=== PATIENT | male | born 1955 | race Caucasian/White ===

== ENCOUNTER → 2019-07-17 13:35 | Outpatient (CLI) | payer OTHER, SELFPAY ==
[2019-06-26 11:22] VITALS: BMI 31.1
--- NOTE | 2019-07-17 13:38 | ECHOD_ITS ---
Reason For Study: CP Procedure This was a 2D Doppler, Color Flow transthoracic echocardiogram. Exam performed in department. Left Ventricle Normal size and thickness. The estimated ejection fraction is 65 %. Normal diastology for age. No regional wall motion abnormalities noted. Right Ventricle Mildly dilated right ventricle. Normal systolic function. Atria Normal left atrium. Normal right atrium. Normal atrial septum. Mitral Valve Mild diffuse mitral valve thickening. Mild mitral annular calcification extending into the posterior leaflet. Tricuspid Valve Normal tricuspid valve. Trivial tricuspid valve insufficiency. Right ventricular systolic pressure estimated to be 23 mmHg. Aortic Valve Trisinus/trileaflet aortic valve. Mild diffuse aortic valve thickening. Trivial aortic valve insufficiency. Pulmonic Valve Normal pulmonic valve. Trivial pulmonic valve insufficiency. Great Vessels Normal aortic root. Normal arch. Normal inferior vena cava. Inferior vena cava collapse with sniff. Pericardium/Pleural No pericardial effusion. MMode/2D Measurements & Calculations LVIDd: 5.0 cm IVSd: 1.2 cm Ao root diam: 3.7 cm LVIDs: 3.1 cm LVPWd: 1.1 cm LA dimension: 4.1 cm RVDd: 3.7 cm FS: 39.2 % LAV(MOD-bp): 70.3 ml LA A4 area: 21.6 cm2 RA A4 area: 16.5 cm2 LAV(MOD-bp) Indexed: 35.1 ml/m2 LAV(MOD-sp2): 76.6 ml LAV(MOD-sp4): 64.0 ml Time Measurements MV dec time: 0.25 sec Doppler Measurements & Calculations MV E max elmo: 84.4 cm/sec Lat Peak E' Elmo: 9.4 cm/sec Med Peak E' Elmo: 5.6 cm/sec MV A max elmo: 70.1 cm/sec E/E' lat: 9.0 E/E' med: 15.0 MV E/A: 1.2 MV V2 max: 86.1 cm/sec MV P1/2t max lemo: 86.1 cm/sec Ao V2 max: 76.4 cm/sec MV max P.0 mmHg MV P1/2t: 114.6 msec Ao max P.3 mmHg MV V2 mean: 47.4 cm/sec MV dec slope: 219.9 cm/sec2 Ao V2 mean: 47.7 cm/sec MV mean P.1 mmHg MVA(P1/2t): 1.9 cm2 Ao mean P.1 mmHg MV V2 VTI: 35.0 cm Ao V2 VTI: 16.7 cm AI max elmo: 370.7 cm/sec LV V1 max: 67.6 cm/sec PA V2 max: 76.1 cm/sec AI max P.0 mmHg LV V1 max P.8 mmHg LV V1 mean P.72 mmHg AI dec slope: 152.9 cm/sec2 LV V1 mean: 38.7 cm/sec AI P1/2t: 710.1 msec LV V1 VTI: 15.7 cm PI end-d elmo: 88.6 cm/sec TR max elmo: 213.9 cm/sec TR max P.3 mmHg Interpretation Summary The estimated ejection fraction is 65 %. Normal diastology for age. Mildly dilated right ventricle. Trivial tricuspid valve insufficiency. Right ventricular systolic pressure estimated to be 23 mmHg. Trivial aortic valve insufficiency. There is no comparison study available. Ordering Physician: Robbi Núñez Referring Physician: Karl Garsia Performed By: Sanjay Rivera RCS
== END ==
LOC: CVS 13:36
PROVIDERS: Family Provider Internal Medicine; PCP Internal Medicine; Referring Provider Internal Medicine Cardiovascular Disease; Visit Provider Internal Medicine Cardiovascular Disease
DX: R07.9 Chest pain, unspecified (principal); I25.10 Atherosclerotic heart disease of native coronary artery without angina pectoris; E78.2 Mixed hyperlipidemia; I10 Essential (primary) hypertension; I48.92 Unspecified atrial flutter; Z95.5 Presence of coronary angioplasty implant and graft
CPT/HCPCS: 93306

== ENCOUNTER → 2019-07-20 12:23 | Outpatient (CLI) | payer OTHER, SELFPAY ==
[2019-06-26 11:22] VITALS: BMI 31.1
--- NOTE | 2019-07-20 12:26 | STEWCON_ITS ---
Reason For Study: CHEST PAIN Stress Results Maximum Predicted HR: 157 bpm Target HR: 133 bpm % Maximum Predicted HR: 85 % DurationHeart Rate Stage (mm:ss) (bpm) BP Comment BASELINE 59 110/742 CC DEFINITY STAGE 1 3:00 93 120/72 STAGE 2 3:00 107 122/58 STAGE 3 3:00 122 142/60 STAGE 4 0:46 133 / RECOVERY 84 120/802 CC DEFINITY Stress Duration: 9:46 mm:ss Maximum Stress HR: 133 bpm Baseline Echocardiogram Findings The estimated ejection fraction is 65 %. Stress Echo Wall motion Data Resting WM Intermediate WM Stress WM Resting Wall Motion Wall Motion Stress No regional wall motion No regional wall motion abnormalities noted. abnormalities noted. EKG Data The baseline ECG displays normal sinus rhythm. The patient exercised according to the regular Rakesh protocol for a total duration of 9:46. The maximum heart rate attained was 144 beats per minute. This was 91% of maximum predicted heart rate. The patient exercised into stage 4 of the Rakesh protocol. During stress, there were no ST or T wave changes noted to suggest ischemia. No clinical angina was noted. Interpretation Summary The estimated ejection fraction is 65 %. Normal, adequate, treadmill echocardiogram. Negative for ischemia by EKG and echocardiographic criteria. No anginal symptoms noted. Rare PVC noted. Appropriate blood pressure response to exercise. Average exercise capacity for age. Test terminated due to the attainment target heart rate and dyspnea. Final LVEF is 75%. Decreased sensitivity due to poor echo windows requiring Definity agent. Patient tolerated procedure well. No complications. The study was technically limited. Contrast injection was performed. Ordering Physician: Robbi Núñez Referring Physician: Robbi Núñez Performed By: Nadiya Anton, LENNY, RVT
== END ==
LOC: CVS 12:24
PROVIDERS: Family Provider Internal Medicine; PCP Internal Medicine; Referring Provider Internal Medicine Cardiovascular Disease; Visit Provider Internal Medicine Cardiovascular Disease
DX: R07.9 Chest pain, unspecified (principal); E78.2 Mixed hyperlipidemia; I10 Essential (primary) hypertension; I48.92 Unspecified atrial flutter; Z95.5 Presence of coronary angioplasty implant and graft
CPT/HCPCS: 93017; 93350; Q9957; A4216; C8928